=== PATIENT | male | born 1950 | race Caucasian/White ===

== ENCOUNTER → 2021-12-19 | Outpatient (CLI) | payer MEDICARE | LOC: M ADAMS 13:15 | PROVIDERS: ATTEND Nurse Practitioner | DX: R05.9 Cough, unspecified (principal) ==

== ENCOUNTER → 2023-03-13 | Outpatient (CLI) | payer MEDICARE | LOC: M RAD 10:08 | PROVIDERS: ATTEND Physician Assistant | DX: Z76.82 Awaiting organ transplant status (principal); N28.1 Cyst of kidney, acquired ==

== ENCOUNTER 2024-04-05 09:21 | Emergency (ER) | payer MEDICARE, OTHER ==
[~2024-04-05] VITALS: Ht 177.8 cm; Wt 98.7 kg
[2024-04-05] MEDS ORDERED: TORS20TA2 (09:57)
[2024-04-05] MEDS ORDERED: CLON0.2T (09:57)
[2024-04-05] MEDS ORDERED: NEPH1TAB PO (09:57)
[2024-04-05] MEDS ORDERED: TRAD5TAB PO (09:57)
[2024-04-05] MEDS ORDERED: ATOR1TAB21 (09:57)
[2024-04-05] MEDS ORDERED: METO100T5 (09:57)
[2024-04-05] MEDS ORDERED: TRAD5TAB (09:57)
[2024-04-05] MEDS ORDERED: ALLO300T2 (09:57)
[2024-04-05] MEDS ORDERED: ASPI81TA26 PO (09:57)
[2024-04-05] MEDS ORDERED: GLIP10TA6 (09:57)
[2024-04-05] MEDS ORDERED: NIFE1TAB52 (09:57)
[2024-04-05] MEDS ORDERED: SODI650T PO (09:57)
[2024-04-05] MEDS ORDERED: ONETTES13 (09:57)
[2024-04-05] MEDS ORDERED: ATOR40TA75 (09:57)
[2024-04-05 11:13] LABS: BASO # 0.1 10^3/uL (0.0-0.2); BASO % 0.8 % (0.0-1.0); EOS # 0.3 10^3/uL (0.0-0.5); EOS % 3.1 % (0.0-3.0); HEMATOCRIT 31.4 % (42.0-52.0); HEMOGLOBIN 10.7 g/dl (13.5-17.5); LYMPH # 1.1 10^3/uL (1.5-5.0); LYMPH % 12.2 % (24.0-44.0); MEAN CORPUSCULAR HGB CONC 34.1 g/dl (32.0-36.5); MONO # 0.7 10^3/uL (0.0-0.8); MONO % 7.5 % (2.0-8.0); NEUTROPHILS # 6.9 10^3/uL (1.5-8.5); PLATELET COUNT, AUTOMATED 243 10^3/uL (150-450); RED BLOOD COUNT 3.34 10^6/uL (4.30-6.10); WHITE BLOOD COUNT 9.1 10^3/uL (4.0-10.0)
[2024-04-05 11:41] LABS: ALBUMIN 3.2 G/DL (3.2-5.2); ALKALINE PHOSPHATASE 86 U/L (46-116); ALT/SGPT 14 U/L (7.0-40); AST/SGOT 16 U/L (<34); BILIRUBIN,DIRECT < 0.1 MG/DL (<0.4); BILIRUBIN,TOTAL 0.4 MG/DL (0.3-1.2); BLOOD UREA NITROGEN 47 MG/DL (9-23); CALCIUM LEVEL 8.8 MG/DL (8.3-10.6); CARBON DIOXIDE LEVEL 25 MMOL/L (20-31); CHLORIDE LEVEL 107 MMOL/L (98-107); CREATININE FOR GFR 3.87 MG/DL (0.70-1.30); GLOMERULAR FILTRATION RATE 16.2 (>42); GLUCOSE, FASTING 224 MG/DL (74-106); SODIUM LEVEL 139 MMOL/L (136-145); TOTAL PROTEIN 6.7 G/DL (5.7-8.2)
[2024-04-05 13:16] VITALS: BP 186/86; TEMP 97.4; O2SAT 95
[2024-04-05] MEDS ORDERED: ZITHTAB PO (13:18)
[2024-04-05] MEDS ORDERED: CEFD300C PO (13:18)
== END 2024-04-05 13:47 | disposition home or self-care (01) ==
LOC: M ED 09:21
DX: J18.9 Pneumonia, unspecified organism (principal); I25.10 Atherosclerotic heart disease of native coronary artery without angina pectoris; E11.9 Type 2 diabetes mellitus without complications; I10 Essential (primary) hypertension; N18.4 Chronic kidney disease, stage 4 (severe); Z95.1 Presence of aortocoronary bypass graft; Z88.1 Allergy status to other antibiotic agents